=== PATIENT | male | born 1955 | race Caucasian/White ===

== ENCOUNTER 2018-07-02 00:32 | Outpatient (CLI) | payer MEDICAID, SELFPAY ==
--- NOTE | 2018-07-02 13:00 | DI.CT_ITS ---
SYMPTOM/DIAGNOSIS: 6 MO F/U TO ABNL LOW DOSE LUNG SCREENING CT, RT LUNG NODULE , R91.1, NICOTINE DEPENDENCE, F17.[address]: CT scan of the chest was performed without intravenous contrast material. Comparison examination is 09/29/17. There is atherosclerosis of the thoracic aorta but no aneurysmal dilatation. Heart size is within normal limits. No significant pericardial effusion is seen. No thoracic adenopathy is present. No pleural effusion or pneumothorax is identified. There are severe emphysematous changes present in the lungs. The 4 mm. nodule in the lateral aspect of the right upper lobe appears stable. There is a 0.6 cm., non calcified pulmonary nodule in the anterior aspect of the right upper lobe, present on the prior examination and unchanged. The 0.7 cm. noncalcified pulmonary nodule along the pleural surface of the superior segment of the right lower lobe is unchanged. No new pulmonary nodules are seen. There is scarring seen in the lung bases bilaterally. No focal consolidating infiltrates are seen. There is scarring in the lung apices bilaterally. No acute abnormalities are seen in the upper abdomen. The patient is status post cholecystectomy. Degenerative changes are seen in the spine. IMPRESSION: Stable pulmonary nodules. Category 3. Lung-RAD Category: Lung RADS Category 3- Probably Benign
== END 2018-07-02 00:52 ==
PROVIDERS: PCP Nurse Practitioner Family; Visit Provider Nurse Practitioner Family
DX: R91.1 Solitary pulmonary nodule (principal); F17.209 Nicotine dependence, unspecified, with unspecified nicotine-induced disorders; J43.9 Emphysema, unspecified
CPT/HCPCS: 71250

== ENCOUNTER 2018-08-02 22:13 | Emergency (ER) | payer MEDICAID, SELFPAY ==
[2018-08-02] VITALS (13 sets, daily range): BP systolic 106–122; BP diastolic 64–70; PULSE 83–109; RESP 10–24; TEMP 36.9–37.1; O2SAT 94–100
--- NOTE | 2018-08-02 22:27 | DI.RAD_ITS ---
SYMPTOMS/DIAGNOSIS: LEFT CHEST PAIN AND DECREASED BREATH SOUNDS, ? PNEUMONIA CHEST: Frontal and lateral views. Comparison CT scan is 07/02/18. Comparison chest x-ray is 04/20/15. The heart size and pulmonary vasculature are within normal limits. The lungs are hyperinflated consistent with underlying COPD. There is scarring in the apices, left greater than right. The scarring appears similar compared to the CT scan from 07/02/18. No acute infiltrates, effusions or pneumothoraces are identified. Degenerative changes are seen in the spine. IMPRESSION: No acute pulmonary process. COPD.
[2018-08-02 22:52] LABS: Abs Immature Grans 0.07 k/cumm (0.0-0.09); Absolute Eosinophil Count 0.17 k/cumm (0.0-0.7); Absolute Monocyte Count 1.27 k/cumm (0.11-0.7); Absolute Neutrophil Count 9.09 k/cumm (1.2-6.7); Basophils % 0.2; Eosinophils % 1.3; HCT 41.9 % (40.0-50.0); HGB 13.7 g/dL (13.5-17.5); Immature Grans % 0.6; Lymphocytes % 16.4; Mean Corp. HGB Concentration 32.7 g/dL (32.0-36.0); Mean Corpuscular Hemoglobin 29.8 pg (27.0-33.0); Mean Corpuscular Volume 91.1 fL (80-95); Mean Platelet Volume 8.3 fL (8.0-11.0); Neutrophils % 71.5; Platelet Count 455 x1000/uL (130-400); White Blood Cell Count 12.71 k/cumm (4.4-10.8)
[2018-08-02] MEDS: Albuterol/Ipratropium 3 ML UPD VIAL UPD (22:52)
[2018-08-02 22:53] LABS: Absolute Basophil Count 0.03 k/cumm (0.0-0.2); Absolute Lymphocyte Count 2.08 k/cumm (1.2-3.4)
--- NOTE | 2018-08-02 22:53 | W.ED.GENAD ---
Medical Decision Making <Nickolas Mack DO - Last Filed: 08/03/18 10:06> This is a 63-year-old gentleman who presents for left upper chest pain. It occurred last night. It does seem to be a mild pleuritic component. He denies any history of PEs. He was recently treated for pneumonia and situation with 10 days of doxycycline and 5 days of steroids. Patient's pain came on rather suddenly last night. It seems to gradually be worsening. He describes it as a tight pinching-like sensation. Vital signs are stable except for mild tachycardia at 105. No hypoxemia, no tachypnea. Differential includes return of his pneumonia, mucous plug, or less likely pneumothorax. Case will be signed out to my colleague Dr. Acosta. EKG 22: 31 Rate 92, intervals normal, sinus rhythm, right bundle branch block that is incomplete, no significant ST elevations or depressions. No T wave inversions. Except for in V 1 <Howard Acosta MD - Last Filed: 08/02/18 23:48> Imaging Data Radiologic Study: Attestation: I personally reviewed and interpreted this imaging study as follows: Imaging: X-Ray Radiologist's impression: no infiltrates of effusions, hyperinflated lungs, likely emphysema/copd HPI <Nickolas Mack DO - Last Filed: 08/03/18 10:06> General Date/Time Provider Initiated Documentation: 08/02/18 22:17. HPI Narrative: This is a 63-year-old male with a past medical history of COPD, who presents today for evaluation of chest pain. The patient states that 10 days ago he was diagnosed with pneumonia and COPD exacerbation. He had 10 days of doxycycline and 5-day course of prednisone. He had notable improvement of his symptoms after this however last night he developed a left upper chest pain, it is worse with inspiration. He has had a return of his cough, and he feels like something stuck in there and the need to cough it out. He is requesting expectorants. He denies any hemoptysis. He denies any new fevers or chills. He denies any history of cardiac disease, pneumothorax, arm pain, neck pain or shoulder he denies any numbness, tingling, or weakness. Patient denies any other associated symptoms at this time. Patient does currently smoke. He does have borderline blood sugars and cholesterol. Related Data Home Medications Medication Instructions Recorded Confirmed albuterol sulfate 2.5 mg INHALATION Q4H PRN #30 vial 12/17/15 08/02/18 aspirin 81 mg PO DAILY tab 07/22/17 08/02/18 Symbicort 2 puff INHALATION BID #3 inhaler 18 08/02/18 albuterol sulfate HFA 90 1 - 2 puff INHALATION Q4-6H PRN #1 07/23/18 08/02/18 mcg/actuation aerosol inhaler inhaler ibuprofen 400 mg PO PRN PRN 08/02/18 08/02/18 levofloxacin 750 mg PO DAILY 5 Days #5 tab 08/02/18 loratadine [Claritin] 10 mg PO DAILY AM 08/02/18 08/02/18 prednisone 60 mg PO DAILY 3 Days #9 tab 08/02/18 Previous Rx's Medication Instructions Recorded Symbicort 2 puff INHALATION BID #3 inhaler 12/18/17 albuterol sulfate HFA 90 1 - 2 puff INHALATION Q4-6H PRN #1 07/23/18 mcg/actuation aerosol inhaler inhaler levofloxacin 750 mg PO DAILY 5 Days #5 tab 08/02/18 prednisone 60 mg PO DAILY 3 Days #9 tab 08/02/18 Allergies Allergy/AdvReac Type Severity Reaction Status Date / Time azithromycin Allergy Mild Other (See Verified 08/02/18 23:14 Comment) tiotropium bromide AdvReac Intermediate Other (See Verified 08/02/18 23:14 [From Spiriva with Comment) HandiHaler] erythromycin base AdvReac Mild Other (See Verified 08/02/18 23:14 Comment) General Stated Complaint: SOB FABIANA: 2 Review of Systems <Nickolas Mack DO - Last Filed: 08/03/18 10:06> Review of Systems All systems reviewed & are unremarkable except as noted in HPI and below PFSH <Nickolas Mack DO - Last Filed: 08/03/18 10:06> Social History Smoking/Tobacco Use Status: Current every day Exam <Nickolas Mack DO - Last Filed: 08/03/18 10:06> Narrative Exam Narrative: 1.Const: Well-nourished, Well-developed, appearing stated age 2.Eyes: PERRL, no conjunctival injection, and symmetrical lids. 3.ENT: Atraumatic external nose and ears. Moist MM. Neck: Symmetric, trachea midline, No thyromegaly. 4.CVS: +S1/S2, No murmurs or gallops. Peripheral pulses 2+ and equal in all extremities. Brisk capillary refill in all extremities. 5.RESP: Unlabored respiratory effort. Notable wheeze on the left and the left upper lung omnte. No significant crackles. Decreased breath sounds on the left, enhanced on the right. No evidence of JVD, tracheal deviation, or asymmetric chest rise. 6.GI: Soft, Nontender/Nondistended, No hepatosplenomegaly. No guarding or rebound. 7.MSK: Normocephalic/Atraumatic, Extremities w/o deformity or ttp No cyanosis or clubbing, Normal movement of all extremities 8.Skin: Warm, Dry. No rashes or lesions. 9.Neuro: product info specialist II-XII grossly intact. Sensation grossly intact, no focal neurologic deficits. 10.Psych: (AAO) x3. Appropriate mood and affect Course <Nickolas Mack DO - Last Filed: 08/03/18 10:06> Vital Signs Temperature 37.1 C 08/02/18 22:22 Pulse 105 H 08/02/18 22:22 Respiratory Rate 20 08/02/18 22:22 Blood Pressure 122/70 08/02/18 22:22 Pulse Oximetry 97 08/02/18 22:22 Temperature 37.1 C 08/02/18 22:22 Pulse 105 H 08/02/18 22:22 Respiratory Rate 20 08/02/18 22:22 Respiratory Effort 08/02/18 22:27 Blood Pressure 122/70 08/02/18 22:22 Blood Pressure Position Sitting 08/02/18 22:22 Pulse Oximetry 97 08/02/18 22:22 Oxygen Delivery Method Room Air 08/02/18 22:22 Oxygen Flow Rate 0 08/02/18 22:22 Sign Out <Nickolas Mack DO - Last Filed: 08/03/18 10:06> Sign Out Data: Sign Out Comment: pending CXR results Last updated by Nickolas Mack DO at 08/02/18 23:05 Post-Handoff Eval: Pt's labs and xray unremarkable, feels much better after toradol. Suspect patient could have mucous plug or possible copd exacerbation. Has no hypoxia or tachycardia on my exam or evidence of dvt to suggest pe. I will start a few days of steroids, and advised if he worsens to fill the abx prescription I am going to prescribe. He will f/u with his pcp and return precautions given
[2018-08-02 23:10] LABS: ALT 34 U/L (12-78); AST 22 U/L (15-37); Albumin 3.1 g/dL (3.4-5.0); Alkaline Phosphatase 102 U/L (46-116); Anion Gap 9.5 mmol/L (3-11); BUN 12 mg/dL (7-18); Bilirubin, Total 0.2 mg/dL (0.2-1.0); CO2 28.5 mmol/L (21.0-32.0); CREATININE 0.75 mg/dL (0.70-1.30); Calcium 9.1 mg/dL (8.5-10.1); Chloride 101 mmol/L (98-107); Glucose 104 mg/dL (70-100); Potassium 4.1 mmol/L (3.5-5.1); Sodium 139 mmol/L (136-145); Total Protein 7.2 g/dL (6.4-8.2)
[2018-08-02] MEDS: Ketorolac 15 MG/ML VIAL IVP (23:10)
[2018-08-02] MEDS: Normal Saline 1,000 ML 1000 ML IV (23:10)
[2018-08-02 23:15] LABS: Troponin I < 0.02 ng/mL (0.00-0.06)
--- NOTE | 2018-08-02 23:31 | DI.VRAD_ITS ---
EXAM: XR Chest, 2 Views EXAM DATE/TIME: 08/02/2018 10:29 PM CLINICAL HISTORY: 63 years old, male; Pain; Chest pain; Left-sided chest pain; Patient HX: Chest pain left side anterior and going into shoulder. Copd TECHNIQUE: XR of the chest, 2 views. COMPARISON: CR CHEST 2 VIEWS PA,LAT 04/20/2015 9:21 AM FINDINGS: Lungs: Hyperinflated lungs. Pleural space: Bilateral apical capping. Heart/Mediastinum: Unremarkable. No cardiomegaly. Bones/joints: Unremarkable. IMPRESSION: No infiltrates or effusions. Hyperinflated lungs, likely emphysema/COPD. Dictated and Authenticated by: Noble Davis MD. Ordering:LAURO Olmos MD
[2018-08-02] MEDS: predniSONE 20 MG TAB 60 MG PO (23:49)
== END 2018-08-02 23:56 | disposition home or self-care (01) ==
PROVIDERS: Student in an Organized Health Care Education/Training Program; Emergency Provider Emergency Medicine; PCP Nurse Practitioner Family
DX: J44.1 Chronic obstructive pulmonary disease with (acute) exacerbation (principal); F17.210 Nicotine dependence, cigarettes, uncomplicated
CPT/HCPCS: 36415; 80053; 93005; 94640; 96361; 96374; 99285; 71046; 84484; 85025; 93010; J1885; J7512; J7620

== ENCOUNTER 2018-08-12 02:03 | Outpatient (CLI) | payer MEDICAID, SELFPAY ==
[2018-08-12 13:57] LABS: Hemoglobin A1C 6.4 % (4.5-6.2)
[2018-08-12 14:27] LABS: Anion Gap 8.4 mmol/L (3-11); BUN 12 mg/dL (7-18); CO2 29.6 mmol/L (21.0-32.0); CREATININE 0.78 mg/dL (0.70-1.30); Calcium 9.4 mg/dL (8.5-10.1); Chloride 100 mmol/L (98-107); Cholesterol 200 mg/dL (50-200); Glucose 105 mg/dL (70-100); HDL Cholesterol 59 mg/dL (40-60); LDL CHOLESTEROL 124 mg/dL (<100); Potassium 4.2 mmol/L (3.5-5.1); Sodium 138 mmol/L (136-145); Triglyceride 110 mg/dL (30-150)
[2018-08-13 11:52] LABS: HIV-1/2 Ag & Ab Screen Negative (NEGAT)
[2018-08-13 11:56] LABS: Hepatitis C Ab w Rflx HCV PCR Negative (NEGAT)
== END 2018-08-12 02:23 ==
PROVIDERS: PCP Nurse Practitioner Family; Visit Provider Nurse Practitioner Family
DX: E78.5 Hyperlipidemia, unspecified (principal); R73.01 Impaired fasting glucose; Z13.1 Encounter for screening for diabetes mellitus; Z11.4 Encounter for screening for human immunodeficiency virus [HIV]; Z11.59 Encounter for screening for other viral diseases
CPT/HCPCS: 36415; 80048; 80061; 83721; 86803; 87389; 83036

== ENCOUNTER 2018-09-02 15:00 | Outpatient (CLI) | payer MEDICAID, SELFPAY | END 2018-09-02 15:20 | PROVIDERS: PCP Nurse Practitioner Family; Visit Provider Nurse Practitioner Family | DX: R73.02 Impaired glucose tolerance (oral) (principal) | CPT/HCPCS: 36415; 86341; 84681 ==

== ENCOUNTER 2018-09-03 10:47 | Outpatient (CLI) | payer MEDICAID, SELFPAY ==
[2018-09-06 17:14] LABS: C-Peptide 2.1 ng/mL (1.1 - 4.4)
== END 2018-09-03 11:07 ==
PROVIDERS: PCP Nurse Practitioner Family; Visit Provider Nurse Practitioner Family
DX: R73.02 Impaired glucose tolerance (oral) (principal)
CPT/HCPCS: 36415; 86341; 84681

== ENCOUNTER 2019-01-20 00:59 | Outpatient (CLI) | payer MEDICAID, SELFPAY ==
--- NOTE | 2019-01-20 13:43 | DI.CT_ITS ---
SYMPTOMS/DIAGNOSIS: 6 MO F/U EXAM CHEST CT: Noncontrast chest CT was performed to follow noncalcified pulmonary nodules seen in the right lung on previous CT of 07/02/18. Previously described right lower lobe posteriorly located 7 mm mean diameter nodule unchanged in appearance on today's examination. 5 mm mean diameter right upper lobe nodule unchanged. 4 mm right upper lobe nodule unchanged. No new intrapulmonary nodule identified. Severe emphysematous changes again noted in both lungs. Images obtained through the upper abdomen show grossly unremarkable appearance of visualized portions of the liver and spleen. No mediastinal or hilar adenopathy. No pleural effusion. CONCLUSION: Stable right sided pulmonary nodules, the largest 7 mm mean diameter in posterior aspect of superior segment of right lower lobe. 12 month follow up LDCT recommended. Category 2.
== END 2019-01-20 01:19 ==
PROVIDERS: PCP Nurse Practitioner Family; Visit Provider Nurse Practitioner Family
DX: F17.209 Nicotine dependence, unspecified, with unspecified nicotine-induced disorders (principal); J44.9 Chronic obstructive pulmonary disease, unspecified; R91.8 Other nonspecific abnormal finding of lung field
CPT/HCPCS: 71250

== ENCOUNTER 2019-05-30 09:21 | Outpatient (CLI) | payer MEDICAID, SELFPAY ==
[2019-05-30 09:53] LABS: Hemoglobin A1C 6.1 % (4.5-6.2)
[2019-05-30 10:49] LABS: Anion Gap 11.2 mmol/L (3-11); BUN 11 mg/dL (7-18); CO2 27.8 mmol/L (21.0-32.0); CREATININE 0.95 mg/dL (0.70-1.30); Calcium 9.3 mg/dL (8.5-10.1); Calculated LDL 67 mg/dL; Chloride 102 mmol/L (98-107); Cholesterol 136 mg/dL (50-200); Glucose 132 mg/dL (70-100); HDL Cholesterol 60 mg/dL (40-60); Potassium 4.9 mmol/L (3.5-5.1); Sodium 141 mmol/L (136-145); Triglyceride 47 mg/dL (30-150)
== END 2019-05-30 09:41 ==
PROVIDERS: PCP Nurse Practitioner Family; Visit Provider Nurse Practitioner Family
DX: E78.5 Hyperlipidemia, unspecified (principal); R73.01 Impaired fasting glucose
CPT/HCPCS: 36415; 80048; 80061; 83036

== ENCOUNTER 2020-01-23 08:49 | Outpatient (CLI) | payer MEDICAID, SELFPAY ==
--- NOTE | 2020-01-23 12:15 | DI.CTLCSR_ITS ---
EXAM: CT CHEST LUNG CANCER SCREEN CLINICAL HISTORY: The patient reportedly has a History of Smoking 30 pack years and presently smokes or has quit the past 15 years. TECHNIQUE: Imaging Protocol: Axial computed tomography images with coronal and sagittal reformatted images were created and reviewed COMPARISON: CT CT CHEST WO from 01/20/2019 FINDINGS: Tracheobronchial tree: Patent where visualized. Mediastinum and Marii: No dominant adenopathy or fluid collection. Pulmonary parenchyma: There are stable nodules seen in the right upper and right lower lobes. The la rgest nodule is seen in the right lower lobe and measures 7 mm in maximum diameter. This is unchange d. There is a tiny unchanged nodule seen in the left lower lobe measuring less than 2 mm. Marked em physematous changes are seen in the lungs. No focal consolidating infiltrates. Lung Nodules: Please see the above discussion under pulmonary parenchyma. Pleura: No effusion or pneumothorax. Heart: The heart is not dilated. Mild coronary artery calcification. No pericardial effusion. Aorta: Thoracic aorta non-dilated.Atherosclerosis. Upper abdomen: Stable left adrenal nodule. Bones: Degenerative changes. Soft Tissues: Unremarkable. IMPRESSION: Stable pulmonary nodules. Lung RADS Cat 2 - Benign Appearance / Behavior: Nodules with a very low likelihood of becoming a clin ically active cancer due to size or lack of growth Lung-RADS 1.0 CATEGORIES: Category 0 - Prior chest CT exam(s) being located for comparison. Category 1 - Annual screening in 12 months. No nodules or definitely benign nodules. Category 2 - Annual screening in 12 months. Benign appearance. Nodules with low likelihood of becomin g active cancer. Category 3 - 6-month follow-up. Probably benign. Short-term follow-up suggested. Nodules with low lik elihood of becoming active cancer. Category 4A - 3-month follow-up and CT/PET if >8 mm in size. Suspicious finding. Findings which requi re additional testing. Category 4B - Findings which require additional testing and tissue sampling. Suspicious finding. C Added to Any of the Above - History of prior lung cancer screening. S Added to Any of the Above - Significant unexpected other finding. RADIATION DOSE DELIVERED: Total DLP DATA REPOSITORY: All CT scans at this facility are submitted to the National Radiology Data Registry (NRDR) Dose Index Registry (DIR) with the [employer] (ACR). RADIATION OPTIMIZATION: All CT scans at this facility use at least one of these dose optimization te chniques: automated exposure control; mA and/or kV adjustment per patient size (includes targeted exa ms where dose is matched to clinical indication); or iterative reconstruction.
== END 2020-01-23 09:09 ==
PROVIDERS: PCP Nurse Practitioner Family; Visit Provider Nurse Practitioner Family
DX: Z12.2 Encounter for screening for malignant neoplasm of respiratory organs (principal); F17.200 Nicotine dependence, unspecified, uncomplicated; R91.8 Other nonspecific abnormal finding of lung field; J43.8 Other emphysema
CPT/HCPCS: G0297

== ENCOUNTER 2020-02-17 04:06 | Outpatient (CLI) | payer MEDICARE, MEDICAID, SELFPAY ==
--- NOTE | 2020-02-17 | DI.CT_ITS ---
EXAM: CT NECK W CLINICAL HISTORY: SMOKER,F17.200,NECK PAIN,M54.2,ASYMMETRIC TONSILS,J35.8. TECHNIQUE: Imaging Protocol: Axial computed tomography images with coronal and sagittal reformatted images were created and reviewed CONTRAST MATERIAL: Intravenous: Omnipaque 350 Contrast volume:100 mL COMPARISON: No exams were available for comparison FINDINGS: Parotids/submandibular: Within normal limits. Thyroid gland: Within normal limits. Lymphadenopathy: There is scattered lymph nodes seen along the level one to level three all measurin g less than 8 mm in short axis diameter which are physiologic in nature. Carotids/Jugular: Within normal limits. Oropharynx: Within normal limits. There is a left tonsillith. Nasopharynx: Within normal limits. Retropharyngeal space: Within normal limits. Hypopharynx: Within normal limits. Larynx: Within normal limits. Bones: Mild degenerative changes are seen in the cervical spine. Orbits and orbital soft tissues: There is limited visualization. Visualized paranasal sinuses: Within normal limits. Lung apices: Marked centrilobular emphysematous changes are present. Soft tissues: Within normal limits. IMPRESSION: 1. No evidence of a mass or adenopathy in the neck. 2. Marked centrilobular emphysema. 3. Left tonsillith. RADIATION DOSE DELIVERED: Total DLP Total DLP DATA REPOSITORY: All CT scans at this facility are submitted to the National Radiology Data Registry (NRDR) Dose Index Registry (DIR) with the [employer] (ACR). RADIATION OPTIMIZATION: All CT scans at this facility use at least one of these dose optimization te chniques: automated exposure control; mA and/or kV adjustment per patient size (includes targeted exa ms where dose is matched to clinical indication); or iterative reconstruction.
== END 2020-02-17 04:26 ==
PROVIDERS: PCP Nurse Practitioner Family; Visit Provider Otolaryngology Otolaryngology/Facial Plastic Surgery
DX: M54.2 Cervicalgia (principal); J35.8 Other chronic diseases of tonsils and adenoids; F17.210 Nicotine dependence, cigarettes, uncomplicated
CPT/HCPCS: 70491

== ENCOUNTER 2020-03-06 02:27 | Outpatient (CLI) | payer MEDICARE, MEDICAID, SELFPAY ==
[2020-03-06 14:33] LABS: Abs Immature Grans 0.09 10^3/uL (0.0-0.06); Absolute Basophil Count 0.08 10^3/uL (0.0-0.2); Absolute Eosinophil Count 0.13 10^3/uL (0.0-0.7); Absolute Lymphocyte Count 2.62 10^3/uL (1.2-3.4); Absolute Monocyte Count 0.83 10^3/uL (0.1-0.8); Absolute Neutrophil Count 5.59 10^3/uL (1.2-6.7); Basophils % 0.9; Eosinophils % 1.4; HGB 15.2 g/dL (13.5-17.5); Lymphocytes % 28.1; MCH 29.4 pg (27.0-33.0); MPV 8.3 fL (8.0-11.0); Monocytes % 8.9; Neutrophils % 59.7; Nucleated RBC 0 %; Platelet Count 347 10^3/uL (130-400); RBC 5.17 10^6/uL (4.36-5.78); RDW 13.2 % (11.8-14.1); RDW-SD 43.3 fL; WBC 9.34 10^3/uL (4.4-10.8)
== END 2020-03-06 02:47 ==
PROVIDERS: PCP Nurse Practitioner Family; Visit Provider Nurse Practitioner Family
DX: R59.0 Localized enlarged lymph nodes (principal)
CPT/HCPCS: 36415; 85025

== ENCOUNTER 2021-05-07 01:00 | Outpatient (CLI) | payer MEDICARE, MEDICAID, SELFPAY ==
--- NOTE | 2021-05-07 09:25 | DI.CTLCSR_ITS ---
Exam(s) CT CHEST LUNG CANCER SCREEN EXAM: CT CHEST LUNG CANCER SCREEN CLINICAL HISTORY: Screening for lung cancer,CURRENT SMOKER, F17.210. TECHNIQUE: Imaging Protocol: Low Dose Technique CONTRAST MATERIAL: None COMPARISON: CT CT CHEST LUNG CANCER SCREEN from 01/23/2020 FINDINGS: CHEST: LUNGS: COPD bilateral emphysematous changes again noted. Scarring in both upper lobes.. There is a pleural-based unchanged 7 millimeter nodule located posteriorly in the superior segment of the right lower lobe again noted. A 5 millimeter nodule in the right upper lobe is also unchanged. Benign-jimbo earing increased markings in the right lung base posterior basal segment are noted., unchanged In the opposite-left lung increased markings in the lingular segment are unchanged as are pleural bas ed increased markings in the posterior basal segment of the left lower lobe. There are no pleural effusions on either side. No new significant findings in the trachea and mainst em bronchi. MEDIASTINUM: There is no obvious hilar nor mediastinal adenopathy. CARDIAC: Heart size is normal. There is no pericardial effusion.Caliber of the thoracic aorta is upp er normal limits. OTHER: Thickening of the left adrenal gland is unchanged. OSSEOUS: No significant osseous lesions.. IMPRESSION: 1. Continued stable appearance of the above described pulmonary nodules. No new nodules, pleural eff usions, nor new intrathoracic adenopathy. 2. Stable appearance of the abnormally thickened left adrenal gland. 3. Lung RADS Cat 2 - Benign Appearance / Behavior: Nodules with a very low likelihood of becoming a c linically active cancer due to size or lack of growth Lung-RADS 1.0 CATEGORIES: Category 0 - Prior chest CT exam(s) being located for comparison. Category 1 - Annual screening in 12 months. No nodules or definitely benign nodules. Category 2 - Annual screening in 12 months. Benign appearance. Nodules with low likelihood of becomin g active cancer. Category 3 - 6-month follow-up. Probably benign. Short-term follow-up suggested. Nodules with low lik elihood of becoming active cancer. Category 4A - 3-month follow-up and CT/PET if >8 mm in size. Suspicious finding. Findings which requi re additional testing. Category 4B - Findings which require additional testing and tissue sampling. Modifier S- Potentially clinically significant findings (non lung cancer) RADIATION DOSE DELIVERED: 85.77mGy.cm Total DLP 1.84mGy CTDIvol DATA REPOSITORY: All CT scans at this facility are submitted to the National Radiology Data Registry (NRDR) Dose Index Registry (DIR) with the [employer] (ACR). RADIATION OPTIMIZATION: All CT scans at this facility use at least one of these dose optimization te chniques: automated exposure control; mA and/or kV adjustment per patient size (includes targeted exa ms where dose is matched to clinical indication); or iterative reconstruction.
== END 2021-05-07 01:20 ==
PROVIDERS: PCP Nurse Practitioner Family; Visit Provider Nurse Practitioner Family
DX: F17.210 Nicotine dependence, cigarettes, uncomplicated (principal); Z12.2 Encounter for screening for malignant neoplasm of respiratory organs; J98.4 Other disorders of lung
CPT/HCPCS: 71271

== ENCOUNTER 2021-05-24 00:38 | Outpatient (CLI) | payer MEDICARE, SELFPAY ==
--- NOTE | 2021-05-24 06:40 | DI.US_ITS ---
Exam(s) US AAA SCREENING EXAM: US AAA SCREENING CLINICAL HISTORY: screening for AAA,Z13.6,SMOKER TECHNIQUE: Ultrasound performed using standard protocol. COMPARISON: US US SOFT TISSUE HEAD OR NECK from 02/03/2020 FINDINGS: Limited abdominal ultrasound was performed to evaluate for possibility of abdominal aortic aneurysm. Abdominal aorta and right and left common iliac artery are within normal limits in diameter. No per ivascular fluid collection seen. IMPRESSION: No evidence of abdominal aortic aneurysm. DATA REPOSITORY:
== END 2021-05-24 00:58 ==
PROVIDERS: PCP Nurse Practitioner Family; Visit Provider Nurse Practitioner Family
DX: Z13.6 Encounter for screening for cardiovascular disorders (principal)
CPT/HCPCS: 76706

== ENCOUNTER 2021-07-23 03:03 | Outpatient (CLI) | payer MEDICARE, SELFPAY ==
[2021-07-23 08:40] LABS: Hemoglobin A1C 5.9 % (<5.7)
[2021-07-23 09:10] LABS: Calculated LDL 99 mg/dL (<100); Cholesterol 182 mg/dL (<200); HDL Cholesterol 60 mg/dL (40-60); Triglyceride 115 mg/dL (<150)
== END 2021-07-23 03:04 | disposition home or self-care (01) ==
LOC: LBO 03:03
PROVIDERS: PCP Nurse Practitioner Family; Visit Provider Nurse Practitioner Family
DX: E78.5 Hyperlipidemia, unspecified (principal); R73.01 Impaired fasting glucose
CPT/HCPCS: 36415; 80061; 83036

== ENCOUNTER 2021-11-08 00:14 | Outpatient (CLI) | payer MEDICARE, MEDICAID, SELFPAY ==
[2021-11-08 13:07] LABS: BUN 10 mg/dL (7-18); CREATININE 0.8 mg/dL (0.70-1.30)
[2021-11-08] MEDS: Omnipaque 350 MG/ML 100 ML BTL IV (14:24)
--- NOTE | 2021-11-08 14:25 | DI.CT_ITS ---
Exam(s) CT NECK W EXAM: CT NECK W CLINICAL HISTORY: TOBACCO ABUSE,ESOPHAGEAL DYSPHAGIA,NECK PAIN, SMOKER. TECHNIQUE: Imaging Protocol: Axial computed tomography images with coronal and sagittal reformatted images were created and reviewed. CONTRAST MATERIAL: Intravenous: Omnipaque 350 Contrast volume:100mL COMPARISON: CT CT NECK W from 02/17/2020 FINDINGS: Orbits and orbital soft tissues: Within normal limits. Visualized paranasal sinuses: There is a small fluid level in the right sphenoid sinuses. The remai mechelle visualized paranasal sinuses and mastoid air cells are clear. Nasopharynx: Within normal limits. Oropharynx: Within normal limits. Hypopharynx: There is a 0.7 x 1.2 cm round soft tissue mass in the hypopharynx just inside the left thyroid cartilage. It appears is be associated with the left false vocal cords. The adjacent thyroid cartilage appears unremarkable. (Series 6, image 244). Larynx: Within normal limits. Retropharyngeal space: Within normal limits. Parotids/submandibular: Within normal limits. Thyroid gland: Within normal limits. Lymphadenopathy: There is scattered lymph nodes seen along the level one to level three all measurin g less than 8 mm in short axis diameter which are physiologic in nature. There is a submandibular lym ph node measuring less than 8 mm in short axis diameter. Trachea: Within normal limits. Lung apices: Emphysematous changes are seen in the lung apices. Bones: Within normal limits for the patient's age. Carotids/Jugular: Within normal limits. Soft tissues: Within normal limits. IMPRESSION: 0.7 x 1.2 cm round soft tissue mass associated with the left false vocal cords. Carcinoma should be e xcluded in this patient. Other benign lesions including lowering the seal or abscess cannot be entire ly excluded. RADIATION DOSE DELIVERED: 271.09mGy.cm Total DLP 271.09mGy.cm Total DLP DATA REPOSITORY: All CT scans at this facility are submitted to the National Radiology Data Registry (NRDR) Dose Index Registry (DIR) with the [employer] (ACR). RADIATION OPTIMIZATION: All CT scans at this facility use at least one of these dose optimization te chniques: automated exposure control; mA and/or kV adjustment per patient size (includes targeted exa ms where dose is matched to clinical indication); or iterative reconstruction.
== END 2021-11-08 00:34 ==
PROVIDERS: PCP Nurse Practitioner Family; Visit Provider Otolaryngology Otolaryngology/Facial Plastic Surgery
DX: R13.19 Other dysphagia (principal); M54.2 Cervicalgia; H92.03 Otalgia, bilateral; F17.201 Nicotine dependence, unspecified, in remission; R59.0 Localized enlarged lymph nodes; J38.3 Other diseases of vocal cords
CPT/HCPCS: 70491; 84520; 82565; J3490

== ENCOUNTER 2022-10-02 03:36 | Outpatient (CLI) | payer MEDICARE, MEDICAID, SELFPAY ==
[2022-10-02] MEDS: Albuterol HFA 18 GM 200 PUFF INH IH (14:08)
[2022-10-02] MEDS: Inhaler, Assist Device 1 EACH MC (14:08)
--- NOTE | 2022-10-15 12:48 | W.PFT ---
Date of service: 10/02/22 Time of Service: 13:03 Pulmonary Function Test Result Requesting Provider Adore Indications: Asthma-COPD Overlap Syndrome Interpretation Spirometry: There is severe airflow limitation. There is likely significant bronchodilator response, although criteria not met Lung Volumes: unable to perform Diffusion Capacity: decreased diffusion Impression Severe airflow obstruction with decreased diffusion Clinical Correlation therefore is recommended.
== END 2022-10-02 03:37 | disposition home or self-care (01) ==
LOC: RT 03:36
PROVIDERS: PCP Nurse Practitioner Family; Visit Provider Student in an Organized Health Care Education/Training Program
DX: J44.9 Chronic obstructive pulmonary disease, unspecified (principal)
CPT/HCPCS: 94060; 94729

== ENCOUNTER 2022-12-21 19:49 | Emergency (ER) | payer MEDICARE, MEDICAID, SELFPAY ==
[2022-12-21 19:57] VITALS: BP 120/82; PULSE 119; RESP 20; TEMP 36.8; O2SAT 96
--- NOTE | 2022-12-21 20:00 | DI.RAD_ITS ---
Exam(s) XR PORTABLE CHEST AP EXAM: XR PORTABLE CHEST AP CLINICAL HISTORY: sob, hx of pneumothorax, cough. TECHNIQUE: 2D digital imaging was performed. COMPARISON: CR XR CHEST 2V PA LATERAL from 08/02/2018 FINDINGS: Single AP portable view. Heart size is upper normal. The mediastinum is not widened. Hyperinflation again noted but no new infiltrates nor pleural effusions. No pulmonary edema. IMPRESSION: No acute pulmonary findings on this single AP portable view of the chest. Hyperinflation again noted. DATA REPOSITORY: RADIATION DOSE DELIVERED:
[2022-12-21] MEDS: Albuterol/Ipratropium 3 ML UPD VIAL UPD (20:17)
[2022-12-21] MEDS: methylPREDNISolone SUCC 125 MG VIAL IVP (20:17)
[2022-12-21 21:01] LABS: COVID-19 PCR Negative (Negative); Influenza A PCR Negative (Negative); Influenza B PCR Negative (Negative); RSV PCR Negative (Negative)
[2022-12-21 21:03] LABS: Source Nasopharynx
--- NOTE | 2022-12-21 21:16 | DI.VRAD_ITS ---
PROCEDURE INFORMATION: Exam: XR Chest Exam date and time: 12/21/2022 8:55 PM Age: 67 years old Clinical indication: Cough and shortness of breath; Patient HX: SOB, HX of pneumothorax, cough TECHNIQUE: Imaging protocol: Radiologic exam of the chest. Views: 1 view. COMPARISON: CT CHEST LUNG CANCER SCREEN 05/07/2021 9:24 AM FINDINGS: Lungs: Lungs are hyperexpanded, compatible with emphysema. No focal consolidation. Pleural spaces: Unremarkable. No pleural effusion. No pneumothorax. Heart/Mediastinum: Unremarkable. No cardiomegaly. Bones/joints: Unremarkable. IMPRESSION: No acute disease Dictated and Authenticated by: Jeremie Granados MD. Ordering:LAURO Olmos MD
--- NOTE | 2022-12-21 21:46 | ED.GENADUL_ITS ---
Discharge Plan Disposition Patient Disposition: Home Condition: Good Discharge Details Clinical Impression: Pharyngitis, COPD exacerbation Primary Care Provider: Sherry Finch ED Provider: Nickolas Mack Home Meds and New Rx's Prescriptions: New prednisone 50 mg tablet 50 mg PO DAILY Qty: 5 0RF loratadine 10 mg tablet 10 mg PO DAILY Qty: 14 0RF No Action budesonide 0.5 mg/2 mL suspension for nebulization 0.5 mg inhalation BID Qty: 120 12RF arformoterol 15 mcg/2 mL solution for nebulization 2 ml inhalation Q12H Qty: 120 12RF levocetirizine [Xyzal] 5 mg tablet 5 mg PO QHS budesonide-formoterol [Symbicort] 160-4.5 mcg/actuation HFA aerosol inhaler 2 puff inhalation QID Qty: 10.2 12RF ipratropium-albuterol 0.5 mg-3 mg(2.5 mg base)/3 mL solution for nebulization 3 ml IH .Q4-6H PRN (Reason: shortness of breath or wheezing) Qty: 270 3RF albuterol sulfate [ProAir HFA] 90 mcg/actuation HFA aerosol inhaler 1 - 2 puff Inhalation Q4-6H PRN Qty: 3 3RF Rx Instructions: DISPENSE ALBUTEROL INHALER BRAND COVERED BY INSURANCE atorvastatin 10 mg tablet 10 mg PO DAILY Qty: 90 3RF Discharge Instructions Instructions: Pharyngitis (ED), COPD (Chronic Obstructive Pulmonary Disease) (ED) Additional Instructions: Your chest x-ray has returned negative for any evidence of pneumonia or other significant abnormality. At this time you have evidence of a mild COPD exacerbation. Please take the prednisone as directed. You can take this starting on Thursday or if you get it early on Thursday. You have been given a large dose of steroid already to start things. Please use your nebulizer every 6 hours for the next 2 to 3 days. Please take the loratadine that has been sent to your pharmacy, 1 tablet daily. This can also be purchased [id number] if you want. If you notice persistence of your symptoms over the next 45 days even after this treatment, you may need to be reassessed to make sure there is no fungal infection developing, or other acute changes. If you notice any worsening of your symptoms, or any new symptoms such as vomiting, diarrhea, fever, chills, shortness of breath, chest pain, numbness, weakness, or fainting , please return immediately to the emergency department for reevaluation. Please follow up with your primary care provider as soon as possible for reassessment and reevaluation. As always, it was a pleasure participating in your medical care today. Referrals: Sherry Finch NP [Primary Care Provider] - Medical Decision Making 67-year-old male with past medical history of COPD, chronic nasal drainage, and history of sore throat in the past with previous biopsies which showed no. So malignancy or abnormality presents today with complaint of mild worsening sore throat on the right, 5 days of mild cough and intermittent shortness of breath. Patient states that it feels very similar to his previous COPD exacerbations. He denies any chest pain whatsoever. Cough is relatively nonproductive except for a small amount of sputum in the morning and the night, which has slightly increased today. He denies any fever or chills. He denies any headache or neck pain. He has been using his inhalers, and states that these helped somewhat, but were not as effective today. No other complaints at this time. No other modifying factors. Exam demonstrates minimal wheezes. No rhonchi or rales. Minimal erythema in the posterior oropharynx. No evidence of peritonsillar abscess whatsoever. No evidence of tonsillitis, fungal infection, or other significant abnormality asi de for the evidence of the erythema on the right. We will test for flu, COVID, strep, RSV. Will give breathing treatment, monitor closely and reassess. Will give Solu-Medrol for concern of COPD exacerbation. We will get a chest x-ray. 11:35 PM Chest x-ray has returned negative for acute process or pneumonia. On reassessment wheezes resolved, patient feels much better. He states that his t hroat pain has resolved, and his breathing feels much better as well. He feels comfortable going home. Symptoms at this time appear consistent with COPD exacerbation. They appear inconsistent clinically with cardiac etiology PE or pneumonia. With the resolution of the patient's symptoms, as well as the negative strep, COVID, flu, RSV, I suspect this is a issue of mild postnasal drip causing the irritation, potentially another mild virus, as well as mild COPD exacerbation. Will send prescription steroids to his pharmacy for home use, recommend continued nebulizer every 6 hours for the next 2 to 3 days, and loratadine to help with the postnasal drip. Otherwise patient appears clinically well at this time. No evidence of pneumothorax or other concerning abnormality. Patient stable for discharge. Discussed red flags for which to return. I have extensively reviewed the treatment plan and discharge instructions with the patient. I have addressed all patient concerns at this time. The patient was made aware of what symptoms to monitor for that would warrant a return to the emergency department. Discussed the plan with the patient, they demonstrate verbal understanding and agreement with our assessment and plan at this time. The documentation in this chart was dictated using [employer] dictation software. Please excuse any dictation errors. FINDINGS: Lungs: Lungs are hyperexpanded, compatible with emphysema. No focal consolidation. Pleural spaces: Unremarkable. No pleural effusion. No pneumothorax. Heart/Mediastinum: Unremarkable. No cardiomegaly. Bones/joints: Unremarkable. IMPRESSION: No acute disease Thank you for allowing us to participate in the care of your patient. Dictated and Authenticated by: Jeremie Granados MD 12/21/2022 9:16 PM Eastern Time ([place] & [place]) HPI General Date/Time Provider Initiated Documentation: 12/21/22 19:58 . HPI Narrative: 67-year-old male with past medical history of COPD, chronic nasal drainage, and history of sore throat in the past with previous biopsies which showed no. So malignancy or abnormality presents today with complaint of mild worsening sore throat on the right, 5 days of mild cough and intermittent shortness of breath. Patient states that it feels very similar to his previous COPD exacerbations. He denies any chest pain whatsoever. Cough is relatively nonproductive except for a small amount of sputum in the morning and the night, which has slightly increased today. He denies any fever or chills. He denies any headache or neck pain. He has been using his inhalers, and states that these helped somewhat, but were not as effective today. No other complaints at this time. No other modifying factors. Related Data Home Medications Medication Instructions Recorded Confirmed ipratropium 0.5 mg-albuterol 3 mg 3 ml inhalation .Q4-6H PRN 04/28/19 12/21/22 (2.5 mg base)/3 mL nebulization shortness of breath or wheezing soln #270 vials albuterol sulfate 90 mcg/actuation 1 - 2 puff inhalation Q4-6H PRN #3 04/10/22 12/21/22 aerosol inhaler (ProAir HFA) units atorvastatin 10 mg tablet 10 mg PO DAILY #90 tab-caps 07/30/22 12/21/22 arformoterol 15 mcg/2 mL solution 2 ml inhalation Q12H #120 mL 09/03/22 12/21/22 for nebulization budesonide 0.5 mg/2 mL suspension 0.5 mg (2 mL) inhalation BID #120 09/03/22 12/21/22 for nebulization mL levocetirizine 5 mg tablet (Xyzal) 5 mg PO QHS 12/02/22 12/21/22 budesonide-formoterol HFA 160 2 puff inhalation QID #10.2 grams 12/09/22 12/21/22 mcg-4.5 mcg/actuation aerosol inhaler (Symbicort) loratadine 10 mg tablet 10 mg PO DAILY #14 tabs 12/21/22 prednisone 50 mg tablet 50 mg PO DAILY #5 tabs 12/21/22 Previous Rx's Medication Instructions Recorded ipratropium 0.5 mg-albuterol 3 mg 3 ml inhalation .Q4-6H PRN 04/28/19 (2.5 mg base)/3 mL nebulization shortness of breath or wheezing soln #270 vials albuterol sulfate 90 mcg/actuation 1 - 2 puff inhalation Q4-6H PRN #3 04/10/22 aerosol inhaler (ProAir HFA) units atorvastatin 10 mg tablet 10 mg PO DAILY #90 tab-caps 07/30/22 arformoterol 15 mcg/2 mL solution 2 ml inhalation Q12H #120 mL 09/03/22 for nebulization budesonide 0.5 mg/2 mL suspension 0.5 mg (2 mL) inhalation BID #120 09/03/22 for nebulization mL budesonide-formoterol HFA 160 2 puff inhalation QID #10.2 grams 12/09/22 mcg-4.5 mcg/actuation aerosol inhaler (Symbicort) loratadine 10 mg tablet 10 mg PO DAILY #14 tabs 12/21/22 prednisone 50 mg tablet 50 mg PO DAILY #5 tabs 12/21/22 Allergies Allergy/AdvReac Type Severity Reaction Status Date / Time tiotropium bromide AdvReac Intermediate Mental Verified 12/21/22 20:01 [From Spiriva with fogginess, HandiHaler] decreased congnition azithromycin AdvReac Mild SORE THROAT Verified 12/21/22 20:01 erythromycin base AdvReac Mild Sore throat Verified 12/21/22 20:01 General Stated Complaint: SOB FABIANA: 3 Review of Systems All systems reviewed & are unremarkable except as noted in HPI and below PFSH All Active Problems Pharyngitis (Acute) COPD exacerbation (Acute) Asthma-COPD overlap syndrome (Acute) Nicotine dependence, cigarettes, uncomplicated (Acute) Pulmonary nodules/lesions, multiple (Acute) Family history of colon cancer in father (Acute) Encounter for colonoscopy in patient with family history of colon cancer (Acute) 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 Chest wall pain following surgery (Chronic) Left lateral ribs s/p chest tube placement for pneumothorax History of colon polyps (Acute) Dysphonia (Acute) Oropharyngeal dysphagia (Acute) IFG (impaired fasting glucose) (Acute) Impaired glucose tolerance in nonobese (Chronic) 08/2018: normal C-peptide and negative [id number] Ab Hyperlipidemia, unspecified (Chronic) 07/2018 labs: 10-year ASCVD risk = 12.9% (baseline LDL 124) --> started moderate statin Tobacco use disorder (Chronic 05/25/15) Began 1969 1PPD Medical History Chronic obstructive pulmonary disease (COPD) (05/25/15) Nodule of right lung (09/29/17) Found on 09/29/17 LDCT --> 6 mo f/u 12/2018: stable, recommend return to Q1year screening Pneumothorax (08/22/18) Pneumothorax on left (~02/2020) 03/26/20 chest tube; 03/30/20 [facility] - Pneumolysis, bleb resection left upper lobe, subsequent left anterior mini thoracotomy and stapling of additional bleb Recurrent sinusitis (06/18/15) 1978 - Dog's toenail was caught in the nasal cavity and each time has infection, it's very intense since then Tubular adenoma of colon (06/09/16) Surgical History Cholecystectomy (11/06/14) Dr. Bear Colonoscopy - MAC (06/09/16) History of lung surgery (~2019) Repair of inguinal hernia Family History Father Personal history of malignant neoplasm colon cancer Emphysema lung Sister Osteoporosis Mother Diabetes Brother Diabetes Social History Smoking/Tobacco Use Status: Current every day Tobacco: How many years used: 40 Smoking risk assessment performed?: Yes Alcohol Intake: current Alcohol Intake frequency: holidays/special occasions only Drug use: Never Substance use type: does not use Caregiver/Support person: No Communication Needs: None current occupation: works at [employer] in [place] Pets and animals: No Current gender identity: male What type of physical activity do you participate in: none Do you feel safe at home: Yes Do you feel safe in your relationship?: Yes Additional Social history: Pt currently smokes 2cigarettes a day. Previously smoked 1 pack a day for 40 yrs. Exam Narrative Exam Narrative: 1.Const: Well-nourished, Well-developed, appearing stated age 2.Eyes: PERRL, no conjunctival injection, and symmetrical lids. 3.ENT: Atraumatic external nose and ears. Moist MM. Neck: Symmetric, trachea midline, No thyromegaly. Minimal erythema in the posterior oropharynx, present on the right. No tonsillar exudate. No lesions. No plaques. No white spots to suggest fungal infection. Patient demonstrates good movement of cervical neck. There is no nuchal rigidity, no nuchal tenderness. Patient is able to flex the neck without any difficulty or significant pain. Negative Kernig's and Brudzinski sign. 4.CVS: +S1/S2, No murmurs or gallops. Peripheral pulses 2+ and equal in all extremities. Brisk capillary refill in all extremities. 5.RESP: Unlabored respiratory effort. Minimal wheeze, no rhonchi or rales. 6.GI: Soft, Nontender/Nondistended, No hepatosplenomegaly. No guarding or rebound. 7.MSK: Normocephalic/Atraumatic, Extremities w/o deformity or ttp No cyanosis or clubbing, Normal movement of all extremities 8.Skin: Warm, Dry. No rashes or lesions. 9.Neuro: assistant finance director II-XII grossly intact. Sensation grossly intact, no focal neurologic deficits. 10.Psych: (AAO) x3. Appropriate mood and affect Course Vital Signs Vital signs: Vital Signs Temperature 36.8 C 12/21/22 19:57 Pulse 119 H 12/21/22 19:57 Respiratory Rate 20 12/21/22 19:57 Blood Pressure 120/82 12/21/22 19:57 Pulse Oximetry 96 12/21/22 19:57 Temperature 36.8 C 12/21/22 19:57 Temperature Source Oral 12/21/22 19:57 Pulse 119 H 12/21/22 19:57 Respiratory Rate 20 12/21/22 19:57 Respiratory Effort Short of Breath 12/21/22 20:12 Respiratory Depth Normal 12/21/22 20:12 Respiratory Pattern Tachypnea 12/21/22 20:12 Blood Pressure 120/82 12/21/22 19:57 Pulse Oximetry 96 12/21/22 19:57 Oxygen Delivery Method Room Air 12/21/22 19:57 Oxygen Flow Rate 0 12/21/22 19:57 Lab/Test Results Lab/Test Results: 12/21/22 20:30 Pharynx Group A Streptococcus Culture - Pending Laboratory Tests Range/Units 12/21/22 20:20 COVID-19 Source Nasopharynx SARS-CoV-2 (PCR) (Negative) Negative Influenza Type A (PCR) (Negative) Negative Influenza Type B (PCR) (Negative) Negative RSV (PCR) (Negative) Negative POC Strep Test-JOHN(Rapid) Start: 12/21/22 20:10 Freq: .Rapid Strep Test Status: Active Protocol: Document 12/21/22 20:43 CB (Rec: 12/21/22 20:43 CB [id number]) Strep test-JOHN(Rapid)-POC POC-Strep test-JOHN (Rapid) Negative POC-Strep test-JOHN (Rapid) Negative
[2022-12-21 22:02] VITALS: BP 109/61; PULSE 103; RESP 22; O2SAT 94
== END 2022-12-21 22:03 | disposition home or self-care (01) ==
PROVIDERS: Emergency Provider Student in an Organized Health Care Education/Training Program; PCP Nurse Practitioner Family
DX: J44.1 Chronic obstructive pulmonary disease with (acute) exacerbation (principal); J02.9 Acute pharyngitis, unspecified; R06.02 Shortness of breath
CPT/HCPCS: 87637; 87880; 96374; 99283; 71045; 87081; 99284; J2930; J7620

== ENCOUNTER 2022-12-25 11:52 | Outpatient (REF) | payer MEDICARE, MEDICAID, SELFPAY | END 2022-12-25 11:53 | disposition home or self-care (01) | LOC: LBN 11:52 | PROVIDERS: PCP Nurse Practitioner Family; Referring Provider Nurse Practitioner Family; Visit Provider Nurse Practitioner Family | DX: J02.9 Acute pharyngitis, unspecified (principal) | CPT/HCPCS: 87070 ==